=== PATIENT | female | born 1985 | race Two or more races ===

== ENCOUNTER 2017-06-29 08:41 | Emergency (ER) | payer BC, OTHER ==
--- OUTSIDE RECORDS SUMMARY | 2017-06-29 08:53 | XMS REPORT ---
:1985 External Reference #:[id number] Author Organization [facility] [employer] Address [address] [place] [address] Phone [phone] Care Team Providers Name Role Phone Patricia Slaughter FNP Care Team Information Fire Alarm Repairer Unavailable Patricia Slaughter FNP Primary Care Physician Unavailable Payers Type Date Identification Numbers Payment Provider Subscriber Commercial Policy Number: [id number] [place] [facility] PayID: [id number] [address] [address] [place] [address] Health Maintenance Expires: Policy Number: [employer] Veronica Tylor Vieyra [facility] (HMO) 04/03/2017 [id number] Plan/Hmo PayID: [id number] [address] [place] [address] Problems Date Description Provider Status Onset: 05/12/2011 Hypothyroidism Sepideh Bass FNP Active Family History Date Family Member(s) Problem(s) Comments Mother Hypertension Social History Type Date Description Comments Marital Status Single Cigarette Use Never Smoked Cigarettes ETOH Use Daily Use Of Alcohol Recreational Drug Use Never Used Drugs Allergies, Adverse Reactions, Alerts Date Description Reaction Status Severity Comments 02/26/2014 NKDA active Medications Medication Date Status Form Strength Qnty SIG Indications Ordering Provider Gabapentin 06/09/ Active Capsules 300mg 30cap 1 PO bid He Rivera M.D. Amethia Lo / Active Tablets 0.1-0.02&a Unknown 0000 mp;0.01mg Levothyroxine / Active Tablets 200mcg 1 by mouth Unknown Sodium 0000 every day Fish Oil 00/ Active Capsules 1 by mouth Unknown 0000 every day Montelukast / Active Tablets 10mg 1 by mouth Unknown Sodium 0000 every day Omeprazole / Active Capsules 10mg open Unknown 0000 DR capsule & sprinkle on applesauce everyday x 1 month Gabapentin 05/24/ Hx Capsules 100mg 30cap 1 by mouth Miguel 2017 - s twice daily Kirby, 06/09/ for 15 days M.D. 2016 Omeprazole 03/18/ Hx Capsules 40mg 60cap 1 by mouth Miguel 2013 - DR allison every day Kirby, 04/20/ M.D. 2016 Azelastine HCL 02/26/ Hx Solution 137mcg/Spr 3unit 2 michel Rivera 2013 - lorin allison everyday Kirby, 04/20/ both M.D. 2016 nostrils Levothyroxine / Hx Tablets 175mcg 90tab 1 by mouth Unknown Sodium 0000 - s every day 2016 Loratadine / Hx Tablets 10mg 30tab 1 by mouth Unknown 0000 - s every day 2016 Immunizations CPT Code Status Date Vaccine Lot # [id number] Given 07/07/2012 Tetanus, Diphtheria Toxoids/Acellular Pertussis Vaccine 7 Or > Vital Signs Date Vital Result Comment 06/24/2017 Weight 193.00 lb Height 48.1 inches 4'0.10" BMI (Body Mass Index) 58.6 kg/m2 Heart Rate 103 /min O2 % BldC Oximetry 96 % Body Temperature 97.7 F Pain Level 0 06/09/2017 Weight 190.00 lb Height 48.1 inches 4'0.10" BMI (Body Mass Index) 57.7 kg/m2 BP Systolic 122 mmHg BP Diastolic 88 mmHg Heart Rate 96 /min O2 % BldC Oximetry 96 % Body Temperature 98.1 F Pain Level 0 04/21/2017 Weight 195.00 lb Height 48.1 inches 4'0.10" BMI (Body Mass Index) 59.3 kg/m2 BP Systolic 133 mmHg BP Diastolic 84 mmHg Heart Rate 111 /min O2 % BldC Oximetry 96 % Body Temperature 97.0 F Pain Level 0 03/18/2014 Weight 200.00 lb Height 48.1 inches 4'0.10" BMI (Body Mass Index) 60.8 kg/m2 BP Systolic 118 mmHg BP Diastolic 80 mmHg Heart Rate 80 /min O2 % BldC Oximetry 98 % Body Temperature 98.0 F 02/26/2014 Weight 200.00 lb Height 48.10 inches 4'0.10" BMI (Body Mass Index) 60.8 kg/m2 BP Systolic 124 mmHg BP Diastolic 80 mmHg Heart Rate 97 /min O2 % BldC Oximetry 98 % Body Temperature 96.7 F Results Test Date Test Result H/L Range Note Order 03/07/2014 PFT Without Bronchodilator <pending> Procedures Date CPT Code Description Status 04/21/2017 32878 Fiberoptic Laryngoscopy,Diag. Completed 03/07/2014 11702 Diffusing Capacity Completed 03/07/2014 18003 Plethysmography Determination Lung Volumes & Per Completed Airway Resist 03/07/2014 77754 Spirometry Completed 02/26/2014 30129 Fiberoptic Laryngoscopy,Diag. Completed Encounters Type Date Location Provider CPT E/M Dx Office Visit 04/21/2017 10:00a Main Office Kirby Rivera M.D. 37088 R05 R13.10 K21.9 J38.5 Office Visit 03/18/2014 10:45a Main Office Kirby Rivera M.D. 54398 786.2 786.09 995.3 784.91 530.81 Office Visit 02/26/2014 3:00p Main Office Kirby Rivera M.D. 74830 784.91 995.3 786.2 470 Plan of Care No Information Available
--- OUTSIDE RECORDS SUMMARY | 2017-06-29 08:54 | XMS REPORT ---
:1985 External Reference #:[id number] Author Organization [facility] [employer] Address [address] [place] [address] Phone [phone] Care Team Providers Name Role Phone Patricia Slaughter FNP Care Team Information Inspector Golf Ball Unavailable Patricia Slaughter FNP Primary Care Physician Unavailable Payers Type Date Identification Numbers Payment Provider Subscriber Commercial Policy Number: [id number] [place] [facility] PayID: [id number] [address] [address] [place] [address] Health Maintenance Expires: Policy Number: MVP [employer] Veronica Tylor Vieyra [facility] (HMO) 04/03/2017 [id number] Plan/Hmo PayID: [id number] [address] [place] [address] Problems Date Description Provider Status Onset: 05/12/2011 [...] CPT Code Status Date Vaccine Lot # [id number] Given 07/07/2012 Tetanus, Diphtheria Toxoids/Acellular Pertussis Vaccine 7 Or > Vital Signs Date Vital Result Comment 06/09/2017 Weight 190.00 lb Height 48.1 inches [...] Procedures Date CPT Code Description Status 04/21/2017 46561 Fiberoptic Laryngoscopy,Diag. Completed 03/07/2014 38370 Diffusing Capacity Completed 03/07/2014 88847 Plethysmography Determination Lung Volumes & Per Completed Airway Resist 03/07/2014 39485 Spirometry Completed 02/26/2014 58597 Fiberoptic Laryngoscopy,Diag. Completed Encounters Type Date Location Provider CPT E/M Dx Office Visit 04/21/2017 10:00a Main Office Kirby Rivera M.D. 83961 R05 R13.10 K21.9 J38.5 Office Visit 03/18/2014 10:45a Main Office Kirby Rivera M.D. 86722 786.2 786.09 995.3 784.91 530.81 Office Visit 02/26/2014 3:00p Main Office Kirby Rivera M.D. 66476 784.91 995.3 786.2 470 Plan of Care Future Appointment(s):06/24/2017 7:30 am - Kirby Rivera M.D. at Main Office
--- OUTSIDE RECORDS SUMMARY | 2017-06-29 08:54 | XMS REPORT ---
:1985 External Reference #:[id number] Author Organization [facility] [employer] Address [address] [place] [address] Phone [phone] Care Team Providers Name Role Phone Patricia Slaughter FNP Care Team Information Sprinkler Worker Unavailable Patricia Slaughter FNP Primary Care Physician Unavailable Payers Type Date Identification Numbers Payment Provider Subscriber Commercial Policy Number: [id number] [place] [facility] PayID: [id number] [address] [address] [place] [address] Health Maintenance Expires: Policy Number: MVP [employer] Veronica Worthyon [facility] (HMO) 04/03/2017 [id number] Plan/Hmo PayID: [id number] [address] [place] [address] Problems Date Description Provider Status Onset: 05/12/2011 [...] Strength Qnty SIG Indications Ordering Provider Gabapentin 05/24/ Active Capsules 100mg 30cap 1 by mouth He Rivera s twice daily Kirby, for 15 days M.D. Amethia Lo / Active Tablets 0.1-0.02&a Unknown 0000 mp;0.01mg Levothyroxine / Active Tablets 200mcg 1 by mouth Unknown Sodium 0000 every day Fish Oil / Active Capsules 1 by mouth Unknown 0000 every day Montelukast / Active Tablets 10mg 1 by mouth Unknown Sodium 0000 every day Omeprazole / Active Capsules 10mg open Unknown 0000 DR capsule & sprinkle on applesauce everyday x 1 month Omeprazole 03/18/ Hx Capsules 40mg 60cap 1 by mouth Miguel 2013 - DR allison every day Kirby, 04/20/ M.DTianna 2016 Azelastine HCL 02/26/ Hx Solution 137mcg/Spr 3unit 2 michel Miguel 2013 - lorin allison everyday Kirby, 04/20/ both M.DTianna 2016 nostrils Levothyroxine / Hx Tablets 175mcg 90tab 1 by mouth Unknown Sodium 0000 - s every day 2016 Loratadine / Hx Tablets 10mg 30tab 1 by mouth Unknown 0000 - s every day 2016 Immunizations CPT Code Status Date Vaccine Lot # [id number] Given 07/07/2012 Tetanus, Diphtheria Toxoids/Acellular Pertussis Vaccine [...] Procedures Date CPT Code Description Status 04/21/2017 43387 Fiberoptic Laryngoscopy,Diag. Completed 03/07/2014 76487 Diffusing Capacity Completed 03/07/2014 68035 Plethysmography Determination Lung Volumes & Per Completed Airway Resist 03/07/2014 96304 Spirometry Completed 02/26/2014 51431 Fiberoptic Laryngoscopy,Diag. Completed Encounters Type Date Location Provider CPT E/M Dx Office Visit 04/21/2017 10:00a Main Office Kirby Rivera M.D. 50451 R05 R13.10 K21.9 J38.5 Office Visit 03/18/2014 10:45a Main Office Kirby Rivera M.D. 30185 786.2 786.09 995.3 784.91 530.81 Office Visit 02/26/2014 3:00p Main Office Kirby Rivera M.D. 54223 784.91 995.3 786.2 470 Plan of Care No Information Available
[2017-06-29 09:11] VITALS: BP 105/85
--- NOTE | 2017-06-29 09:27 | UC ---
FLU HPI - HPI Summary HPI Summary: Pt c/o cough, fever, chills, generalized malaise X 2 days. P treceived flu vaccine for 8905-5792 season - History of Current Complaint Chief Complaint: UCRespiratory Stated Complaint: COUGH VOMITING CHILLS Time Seen by Provider: 06/29/17 08:49 Hx Obtained From: Patient Hx Last Menstrual Period: unknown ?: No Onset/Duration: Sudden Onset, Lasting Days, Still Present, Worse Since - onset Severity Currently: Mild Severity Initially: Moderate Associated Signs & Symptoms: Positive: Fever, Myalgia, Nasal Congestion, Headache Related Hx: Possible Flu/Infectious Exposure - Allergy/Home Medications Allergies/Adverse Reactions: Allergies Allergy/AdvReac Type Severity Reaction Status Date / Time No Known Allergies Allergy Verified 06/29/17 09:02 Home Medications: Home Medications Levothyroxine TAB* [Synthroid 100 MCG TAB*] 200 mcg PO DAILY 06/29/17 [History Confirmed 06/29/17] Norgestimate-Eth Estradiol(NF) [Ortho Tri-Cyclen (NF)] 1 tab PO DAILY 06/29/17 [ History Confirmed 06/29/17] PMH/Surg Hx/FS Hx/Imm Hx Previously Healthy: Yes - Surgical History Surgical History: Yes Surgery Procedure, Year, and Place: GB removed due to stones about 3 years ago @ [facility]. - Family History Known Family History: Positive: Cardiac Disease - Social History Occupation: Employed Full-time - works two fulltime jobs Lives: With Family Alcohol Use: Rare Substance Use Type: None Smoking Status (MU): Never Smoked Tobacco Have You Smoked in the Last Year: No - Immunization History Most Recent Influenza Vaccination: 2017 Vaccination Up to Date: Yes Review of Systems Constitutional: Fever, Chills, Fatigue Skin: Negative, Rash ENT: Sinus Congestion Respiratory: Shortness Of Breath, Cough Cardiovascular: Negative Gastrointestinal: Negative Genitourinary: Negative Motor: Negative Neurovascular: Negative Musculoskeletal: Myalgia Neurological: Negative Psychological: Negative Is Patient Immunocompromised?: No All Other Systems Reviewed And Are Negative: Yes Physical Exam Triage Information Reviewed: Yes Appearance: Ill-Appearing Vital Signs: Initial Vital Signs Temp 99 F 06/29/17 09:04 Pulse 117 06/29/17 09:04 Resp 20 06/29/17 09:04 BP 105/85 06/29/17 09:04 Pulse Ox 97 06/29/17 09:04 Vital Signs Reviewed: Yes Eye Exam: Normal ENT Exam: Other ENT: Positive: Nasal congestion Dental Exam: Normal Neck exam: Normal Respiratory Exam: Normal Respiratory: Positive: No respiratory distress Cardiovascular: Positive: Tachycardia Musculoskeletal Exam: Normal Neurological Exam: Normal Psychological Exam: Normal Skin Exam: Normal Flu Course/Dx - Course Course Of Treatment: positive for Flu B on rapid test - Differential Dx/Diagnosis Differential Diagnosis/HQI/PQRI: Bronchitis, Influenza Provider Diagnoses: Influenza B. cough Discharge - Discharge Plan Condition: Stable Disposition: HOME Prescriptions: Albuterol HFA INHALER* [Ventolin HFA Inhaler*] 1 - 2 puff INH Q6H PRN #1 mdi PRN Reason: Sob/Wheezing Benzonatate CAP* [Tessalon 100 MG CAP*] 100 mg PO Q8H PRN #21 cap PRN Reason: Cough methylPREDNISolone TAB* [Medrol TAB*] 4 - 8 mg PO .SEE REFUGIO #1 refugio Ondansetron [Zofran 8 MG Odt] 8 mg PO Q8H PRN #15 tab PRN Reason: Nausea Oseltamivir CAP* [Tamiflu CAP*] 75 mg PO Q12H #10 cap Patient Education Materials: Influenza (ED), Acute Cough (ED) Forms: *Work Release Referrals: Danica LIU,Jaclyn [Medical Doctor] - If Needed
== END 2017-06-29 09:40 | disposition home or self-care (01) ==
LOC: UCCORT 08:41
DX: J10.1 Influenza due to other identified influenza virus with other respiratory manifestations (principal); R05 Cough
CPT/HCPCS: 87502; 99212; G0463

== ENCOUNTER 2017-08-14 09:19 | Emergency (ER) | payer SELFPAY ==
[2017-08-14 10:44] VITALS: BP 126/85
--- NOTE | 2017-08-14 11:54 | UC ---
Upper Extremity HPI - HPI Summary HPI Summary: Pt c/o sudden onset of left lateral forearm pain s/p falling on ice last this morning. - History of Current Complaint Chief Complaint: UCUpperExtremity Stated Complaint: LEFT ARM INJ Time Seen by Provider: 08/14/17 11:20 Hx Obtained From: Patient Hx Last Menstrual Period: unknown ?: No Onset/Duration: Sudden Onset Severity Initially: Moderate Severity Currently: Mild Pain Intensity: 4 Location Of Pain: Is Discrete @ - left lateral mid forearm Character: Dull, Aching Aggravating Factor(s): Other - touch Alleviating Factor(s): Ice, Rest Associated Signs And Symptoms: Positive: Bruising Related History: Dominant Hand Right - Risk Factors Non-Orthopedic Risk Factor: Negative DVT Risk Factors: Negative Septic Arthritis Risk Factor: Negative Compartment Syndrome Risk Factors: Pain - Allergies/Home Medications Allergies/Adverse Reactions: Allergies Allergy/AdvReac Type Severity Reaction Status Date / Time No Known Allergies Allergy Verified 08/14/17 10:44 PMH/Surg Hx/FS Hx/Imm Hx Previously Healthy: Yes - Surgical History Surgical History: Yes Surgery Procedure, Year, and Place: GB removed due to stones about 3 years ago @ [facility]. - Family History Known Family History: Positive: Cardiac Disease - Social History Occupation: Employed Full-time Lives: With Family Alcohol Use: Rare Substance Use Type: None Smoking Status (MU): Never Smoked Tobacco Have You Smoked in the Last Year: No - Immunization History Most Recent Influenza Vaccination: 2017 Vaccination Up to Date: Yes Review of Systems Constitutional: Negative Skin: Bruising Eyes: Negative ENT: Negative Respiratory: Negative Cardiovascular: Negative Gastrointestinal: Negative Genitourinary: Negative Motor: Negative Neurovascular: Negative Musculoskeletal: Arthralgia - mid lateral left forearm, Myalgia Neurological: Negative Psychological: Negative Is Patient Immunocompromised?: No All Other Systems Reviewed And Are Negative: Yes Physical Exam Triage Information Reviewed: Yes Appearance: Well-Appearing Vital Signs: Initial Vital Signs Temp 97.5 F 08/14/17 10:41 Pulse 78 08/14/17 10:41 Resp 18 08/14/17 10:41 BP 126/85 08/14/17 10:41 Pulse Ox 100 08/14/17 10:41 Vital Signs Reviewed: Yes Eye Exam: Normal ENT Exam: Normal Dental Exam: Normal Neck exam: Normal Respiratory Exam: Other Respiratory: Positive: No respiratory distress Musculoskeletal Exam: Other Musculoskeletal: Positive: Other: - left lateral mid forearm quarter size bruise. Neurological Exam: Normal Psychological Exam: Normal Skin Exam: Other - bruise left lateral mid forearm, quarter size Diagnostics - Radiology No standard instances Radiology Interpretation Completed By: Radiologist - negative for fracture Upper Extremity Course/Dx - Differential Dx/Diagnosis Differential Diagnosis/HQI/PQRI: Contusion, Fracture (Closed) Provider Diagnoses: left forearm contusion Discharge - Discharge Plan Condition: Stable Disposition: HOME Patient Education Materials: Contusion in Adults (ED) Referrals: Star Salas MD [Medical Doctor] - If Needed Leona Slaughter NP [Primary Care Provider] - If Needed
--- NOTE | 2017-08-14 11:55 | RAD ---
Indication: LEFT forearm posterior proximal pain and bruising following a fall. Comparison: No relevant prior exams available on the [facility] PACS for comparison. Technique: AP and lateral views LEFT forearm. Report: Negative for fracture or articular malalignment. Negative for fat pad displacement at the elbow to indicate effusion. Mild ulnar minus variance. Mild osteoarthritis at the distal radioulnar joint. Mild dorsal soft tissue swelling at the mid forearm. IMPRESSION: Mild dorsal soft tissue swelling at the mid forearm. Negative for fracture or articular malalignment.
== END 2017-08-14 12:00 | disposition home or self-care (01) ==
LOC: UCCORT 09:19
DX: S50.12XA Contusion of left forearm, initial encounter (principal); W00.0XXA Fall on same level due to ice and snow, initial encounter; Y93.9 Activity, unspecified; Y92.9 Unspecified place or not applicable
CPT/HCPCS: 99211; G0463